=== PATIENT | male | born 1990 | race Caucasian/White ===

== ENCOUNTER 2020-03-16 21:16 | Emergency (ER) | payer OTHER ==
[~2020-03-16] VITALS: Ht 167.6 cm; Wt 99.8 kg
[2020-03-17 00:45] VITALS: BP 149/97
[2020-03-17] MEDS ORDERED: methylPREDNISolone SOD SUCC 125 MG/2 ML VL IM ONE (01:00)
[2020-03-17] MEDS ORDERED: KETOROLAC TROMETH 60MG/2ML VIAL IM ONE (01:00)
== END 2020-03-17 01:51 | disposition home or self-care (01) ==
LOC: ER 21:16
DX: S93.402A Sprain of unspecified ligament of left ankle, initial encounter (principal); X58.XXXA Exposure to other specified factors, initial encounter; Y93.9 Activity, unspecified; Y92.89 Other specified places as the place of occurrence of the external cause; Y99.0 Civilian activity done for income or pay
CPT/HCPCS: 73610; 96372; 99284; J1885; J2930

== ENCOUNTER 2020-12-24 23:34 | Inpatient (IN) | payer OTHER ==
[~2020-12-24] VITALS: Ht 167.6 cm; Wt 106.9 kg
[2020-12-25] VITALS (24 sets, daily range): BP systolic 111–147; BP diastolic 67–95
[2020-12-25 00:02] LABS: Hematocrit 42.6 % (41.0-53.0); Red Cell Distribution Width 12.9 % (11.8-14.3)
[2020-12-25 00:04] LABS: Hemoglobin 15.1 g/dL (13.5-17.5); Mean Corpuscular Hemoglobin 34.2 pg (28.0-32.0); Mean Corpuscular Hgb Conc. 35.5 g/dL (32.0-36.0); Mean Corpuscular Volume 96.1 fL (80.0-100.0); Platelet Count (auto) 394 10^3/uL (140-450); Red Blood Cells 4.43 10^6/uL (4.5-5.90); White Blood Cell 15.6 10^3/uL (4.4-10.8)
[2020-12-25 00:14] LABS: Basophils % (manual) 0 (0.0-2.0); Eosinophils % (manual) 0 (0-7); Promyelocytes % 0; Reactive Lymphocytes 0
[2020-12-25 00:21] LABS: Albumin 2.7 g/dL (3.4-5.0); BUN/Creatinine Ratio 11.2; Calcium 8.1 mg/dL (8.5-10.1); Magnesium 2.9 mg/dL (1.6-2.6); Potassium 3.8 mmol/L (3.5-5.1)
[2020-12-25 00:26] LABS: INR 1.12 (0.9-1.15); Partial Thromboplastin Time 22.2 sec (23.0-31.2)
[2020-12-25 00:27] LABS: Total Protein 7.9 g/dL (6.4-8.2)
[2020-12-25 00:30] LABS: Lactic Acid w/Reflex 2.9 mmol/L (0.4-2.0)
[2020-12-25 00:50] LABS: Band Neutrophils % (manual) 9; Blast Cells 1; Lymphocytes % (manual) 15 (10.0-50.0); Metamyelocytes % 1; Monocytes % (manual) 8 (0-12); Myelocytes % 1
[2020-12-25] MEDS ORDERED: ONDANSETRON HCL 4 MG/2 ML VIAL IV ONE (01:15)
[2020-12-25] MEDS ORDERED: MORPHINE SULFATE 4 MG/ML SYR/VIAL IV ONE (01:15)
[2020-12-25] MEDS ORDERED: ALBUTEROL SULF 2.5 MG/0.5ML(0.5%) NEB SOLN NEB ONE (01:30)
[2020-12-25] MEDS ORDERED: IPRATROPIUM BROM 0.5 MG/2.5ML INH SOL NEB ONE (01:30)
[2020-12-25] MEDS ORDERED: IOHEXOL 350 MG/ML 100ML IJ ONE (03:29)
[2020-12-25] MEDS ORDERED: PIPERACILLIN-TAZOB 3.375GM 100 ML IV ONE (05:30)
[2020-12-25] MEDS ORDERED: VANCOMYCIN 1GM/250ML 250 ML IV ONE (05:30)
[2020-12-25 06:21] LABS: Urine Bacteria FEW /hpf (None Seen); Urine Blood TRACE /uL (Negative); Urine Specific Gravity 1.011 (1.001-1.035); Urine WBC 9 /hpf (0 - 3)
[2020-12-25] MEDS ORDERED: MORPHINE SULFATE 4 MG/ML SYR/VIAL IV PRN (08:00)
[2020-12-25] MEDS ORDERED: IPRATROPIUM BROM 0.5 MG/2.5ML INH SOL NEB PRN (08:00)
[2020-12-25] MEDS ORDERED: VANCOMYCIN PER PHARMACY 0 MG IV SCH (08:00)
[2020-12-25] MEDS ORDERED: DEXTROSE (50%) 50ML SYRG IV PRN (08:00)
[2020-12-25] MEDS ORDERED: ONDANSETRON HCL 4 MG/2 ML VIAL IV PRN (08:00)
[2020-12-25] MEDS ORDERED: HYDROcodone-ACET 5/325MG TAB PO PRN (08:00)
[2020-12-25] MEDS ORDERED: ACETAMINOPHEN 325 MG TAB PO PRN (08:00)
[2020-12-25] MEDS ORDERED: NITROGLYCERIN 0.4 MG SL TAB SL PRN (08:00)
[2020-12-25] MEDS ORDERED: MORPHINE SULF INJ 2 MG/ML SYRINGE 1ML IV PRN (08:00)
[2020-12-25] MEDS ORDERED: ALBUTEROL SULF 2.5 MG/0.5ML(0.5%) NEB SOLN NEB PRN (08:00)
[2020-12-25 08:36] LABS: Basophils # (auto) 0 10 ^3/uL (0-0.2); Basophils % (auto) 0.3 % (0.0-2.0); Eosinophils # (auto) 0.1 10 ^3/uL (0-0.8); Eosinophils % (auto) 0.5 % (0.0-7.0); Hematocrit 42.9 % (41.0-53.0); Hemoglobin 14.8 g/dL (13.5-17.5); Lymphocytes # (auto) 1.5 10 ^3/uL (0.4-5.4); Lymphocytes % (auto) 9.7 % (10.0-50.0); Mean Corpuscular Hemoglobin 33.3 pg (28.0-32.0); Mean Corpuscular Hgb Conc. 34.5 g/dL (32.0-36.0); Mean Corpuscular Volume 96.7 fL (80.0-100.0); Monocytes # (auto) 0.9 10 ^3/uL (0-1.3); Monocytes % (auto) 6.2 % (0.0-12.0); Neutrophils # (auto) 12.5 10 ^3/uL (1.6-8.6); Neutrophils % (auto) 83.3 % (37.0-80.0); Nucleated Red Blood Cells % 0.3 %; Platelet Count (auto) 316 10^3/uL (140-450); Red Blood Cells 4.43 10^6/uL (4.5-5.90); Red Cell Distribution Width 12.8 % (11.8-14.3)
[2020-12-25 08:44] LABS: Albumin 2.4 g/dL (3.4-5.0); BUN/Creatinine Ratio 11.1; Calcium 7.8 mg/dL (8.5-10.1); Magnesium 2.7 mg/dL (1.6-2.6); Potassium 3.7 mmol/L (3.5-5.1)
[2020-12-25 08:47] LABS: Bilirubin, Total 0.9 mg/dL (0.2-1.0); Total Protein 7.1 g/dL (6.4-8.2)
[2020-12-25] MEDS: SODIUM CHLORIDE 0.9% 1,000 ML IV SCH (08:51)
[2020-12-25] MEDS ORDERED: ENOXAPARIN SOD 40 MG/0.4 ML SYRINGE SC SCH (10:00)
[2020-12-25] MEDS ORDERED: AZITHROMYCIN 500MG/ 250ML 250 ML IV SCH (10:00)
[2020-12-25] MEDS: FAMOTIDINE (10MG/ML) 2ML VL IV SCH ×2 (10:26→20:14)
[2020-12-25] MEDS ORDERED: REMDESIVIR PER PHARMACY 0 ML IV SCH (11:30)
[2020-12-25] MEDS ORDERED: ACETAMINOPHEN 500 MG TAB PO PRN (11:30)
[2020-12-25] MEDS: ACCU-CHEK COMFORT CURVE STRIP VI SCH ×3 (11:30→22:00)
[2020-12-25] MEDS ORDERED: ALBUTEROL SULF HFA 90MCG INH 200DOSE IN PRN (11:30)
[2020-12-25] MEDS ORDERED: IVERMECTIN 3 MG TAB PO ONE (11:44)
[2020-12-25] MEDS ORDERED: LORazepam 2MG/ML-1ML VIAL IV PRN (11:45)
[2020-12-25] MEDS ORDERED: ENOXAPARIN SOD 60 MG/0.6 ML SYRINGE SC ONE (12:00)
[2020-12-25] MEDS: InsuLIN REG 1unit/0.01ml Soln (100units/ml) SC SCH ×3 (12:33→20:29)
[2020-12-25] MEDS ORDERED: levoFLOXacin 750MG 150 ML IV ONE (13:00)
[2020-12-25] MEDS ORDERED: methylPREDNISolone SOD SUCC 500 MG in SODIUM CHL 0.9% 100 ML IV ONE (13:00)
[2020-12-25] MEDS ORDERED: FUROSEMIDE 40 MG/4 ML VIAL IV ONE (13:15)
[2020-12-25] MEDS ORDERED: VANCOMYCIN 1GM/250ML 250 ML IV SCH (14:00)
[2020-12-25] MEDS ORDERED: REMDESIVIR 200 MG in NS 210ml LOADING DOSE ADULT IV ONE (15:00)
[2020-12-25] MEDS: ALBUTEROL SULF HFA 90MCG INH 200DOSE IN PRN (18:51)
[2020-12-25] MEDS: IPRATROPIUM BROMIDE HFA AER IN SCH ×2 (18:51→22:50)
[2020-12-25] MEDS: BUDESONIDE (INHALATION) 180 MCG IH IN SCH (18:51)
[2020-12-25] MEDS: ENOXAPARIN SOD 100 MG/1 ML SYRINGE SC SCH (20:14)
[2020-12-26] VITALS (14 sets, daily range): BP systolic 116–144; BP diastolic 54–115
[2020-12-26] MEDS: ACCU-CHEK COMFORT CURVE STRIP VI SCH ×4 (04:06→21:41)
[2020-12-26] MEDS: InsuLIN REG 1unit/0.01ml Soln (100units/ml) SC SCH ×4 (05:26→21:57)
[2020-12-26 05:35] LABS: Basophils % (auto) 0.4 % (0.0-2.0); Eosinophils # (auto) 0 10 ^3/uL (0-0.8); Eosinophils % (auto) 0.1 % (0.0-7.0); Hemoglobin 14.6 g/dL (13.5-17.5); Monocytes # (auto) 0.5 10 ^3/uL (0-1.3)
[2020-12-26 05:37] LABS: Basophils # (auto) 0.1 10 ^3/uL (0-0.2); Hematocrit 41.2 % (41.0-53.0); Lymphocytes % (auto) 8.1 % (10.0-50.0); Mean Corpuscular Hemoglobin 34.5 pg (28.0-32.0); Mean Corpuscular Hgb Conc. 35.3 g/dL (32.0-36.0); Mean Corpuscular Volume 97.8 fL (80.0-100.0); Monocytes % (auto) 4.5 % (0.0-12.0); Neutrophils # (auto) 10.4 10 ^3/uL (1.6-8.6); Neutrophils % (auto) 86.9 % (37.0-80.0); Nucleated Red Blood Cells % 0.3 %; Platelet Count (auto) 288 10^3/uL (140-450); Red Blood Cells 4.22 10^6/uL (4.5-5.90)
[2020-12-26 05:44] LABS: Potassium 3.9 mmol/L (3.5-5.1)
[2020-12-26 05:51] LABS: Albumin 2.5 g/dL (3.4-5.0); BUN/Creatinine Ratio 12.6; Bilirubin, Total 0.9 mg/dL (0.2-1.0); Calcium 8.4 mg/dL (8.5-10.1); Total Protein 7.6 g/dL (6.4-8.2)
[2020-12-26] MEDS: BUDESONIDE (INHALATION) 180 MCG IH IN SCH ×2 (06:11→18:28)
[2020-12-26] MEDS: IPRATROPIUM BROMIDE HFA AER IN SCH ×4 (06:11→22:35)
[2020-12-26] MEDS: ALBUTEROL SULF HFA 90MCG INH 200DOSE IN PRN ×4 (06:11→22:35)
[2020-12-26] MEDS: SODIUM CHLORIDE 0.9% 1,000 ML IV SCH (06:17)
[2020-12-26] MEDS: FUROSEMIDE 40 MG/4 ML VIAL IV SCH (07:59)
[2020-12-26] MEDS: DexAMETHasone SOD PHOS 10MG/1ML VIAL INJ IV SCH (07:59)
[2020-12-26] MEDS: ZINC SULFATE 220mg CAP or TAB PO SCH (08:00)
[2020-12-26] MEDS: levoFLOXacin 750MG 150 ML IV SCH (08:00)
[2020-12-26] MEDS: ASCORBIC ACID 1,000 MG TAB PO SCH (08:00)
[2020-12-26] MEDS: FAMOTIDINE (10MG/ML) 2ML VL IV SCH ×2 (08:00→21:40)
[2020-12-26] MEDS: CHOLECALCIFEROL (VITD3) 2,000 UNIT CAP/TAB PO SCH (08:00)
[2020-12-26] MEDS: ENOXAPARIN SOD 100 MG/1 ML SYRINGE SC SCH ×2 (08:01→21:41)
[2020-12-26] MEDS: REMDESIVIR 100mg 100 MG in SODIUM CHL 0.9% 230 ML IV SCH (15:21)
[2020-12-26] MEDS ORDERED: methylPREDNISolone SOD SUCC 40 MG/ML VL IV ONE (16:30)
[2020-12-26] MEDS ORDERED: diphenhdrAMINE HCL 50 MG/1 ML VL IV ONE (16:30)
[2020-12-26] MEDS ORDERED: ACETAMINOPHEN 650 mg PER 20.3 mL UD PO ONE (16:30)
[2020-12-26] MEDS ORDERED: TOCILIZUMAB 400 MG in SODIUM CHL 0.9% 80 ML IV ONE (17:00)
[2020-12-27] VITALS (14 sets, daily range): BP systolic 91–118; BP diastolic 34–118
[2020-12-27] MEDS: InsuLIN REG 1unit/0.01ml Soln (100units/ml) SC SCH ×4 (05:27→20:59)
[2020-12-27] MEDS: ALBUTEROL SULF HFA 90MCG INH 200DOSE IN PRN ×2 (05:48→18:09)
[2020-12-27] MEDS: IPRATROPIUM BROMIDE HFA AER IN SCH ×3 (05:48→22:11)
[2020-12-27] MEDS: BUDESONIDE (INHALATION) 180 MCG IH IN SCH ×2 (05:49→18:10)
[2020-12-27 05:56] LABS: Basophils # (auto) 0 10 ^3/uL (0-0.2); Basophils % (auto) 0.1 % (0.0-2.0); Eosinophils # (auto) 0 10 ^3/uL (0-0.8); Hematocrit 40.3 % (41.0-53.0); Lymphocytes # (auto) 0.9 10 ^3/uL (0.4-5.4); Lymphocytes % (auto) 5.8 % (10.0-50.0); Mean Corpuscular Hgb Conc. 34.6 g/dL (32.0-36.0); Mean Corpuscular Volume 98.3 fL (80.0-100.0); Monocytes # (auto) 1.1 10 ^3/uL (0-1.3); Monocytes % (auto) 6.7 % (0.0-12.0); Neutrophils # (auto) 13.8 10 ^3/uL (1.6-8.6); Neutrophils % (auto) 87.4 % (37.0-80.0); Nucleated Red Blood Cells % 0.2 %; Platelet Count (auto) 314 10^3/uL (140-450); White Blood Cell 15.8 10^3/uL (4.4-10.8)
[2020-12-27 06:17] LABS: BUN/Creatinine Ratio 19.4; Calcium 8.4 mg/dL (8.5-10.1); Potassium 3.5 mmol/L (3.5-5.1)
[2020-12-27] MEDS: ACCU-CHEK COMFORT CURVE STRIP VI SCH ×4 (07:00→21:05)
[2020-12-27] MEDS: levoFLOXacin 750MG 150 ML IV SCH (09:37)
[2020-12-27] MEDS: FUROSEMIDE 40 MG/4 ML VIAL IV SCH (09:38)
[2020-12-27] MEDS: FAMOTIDINE (10MG/ML) 2ML VL IV SCH ×2 (09:38→21:04)
[2020-12-27] MEDS: DexAMETHasone SOD PHOS 10MG/1ML VIAL INJ IV SCH (09:39)
[2020-12-27] MEDS: ZINC SULFATE 220mg CAP or TAB PO SCH (09:39)
[2020-12-27] MEDS: ENOXAPARIN SOD 100 MG/1 ML SYRINGE SC SCH ×2 (09:40→21:05)
[2020-12-27] MEDS: CHOLECALCIFEROL (VITD3) 2,000 UNIT CAP/TAB PO SCH (09:40)
[2020-12-27] MEDS: ASCORBIC ACID 1,000 MG TAB PO SCH (09:40)
[2020-12-27] MEDS ORDERED: diphenhdrAMINE HCL 50 MG/1 ML VL IV ONE (10:00)
[2020-12-27] MEDS ORDERED: ACETAMINOPHEN 650 mg PER 20.3 mL UD PO ONE (10:00)
[2020-12-27] MEDS ORDERED: TOCILIZUMAB 400 MG in SODIUM CHL 0.9% 80 ML IV ONE (10:30)
[2020-12-27 11:29] LABS: INR 1.28 (0.9-1.15); Partial Thromboplastin Time 28.2 sec (23.0-31.2)
[2020-12-27] MEDS ORDERED: LIDOCAINE 1% (LOCAL ANESTH.) PF 5ml SDV ID ONE (15:00)
[2020-12-27] MEDS: REMDESIVIR 100mg 100 MG in SODIUM CHL 0.9% 230 ML IV SCH (15:47)
[2020-12-27] MEDS: SODIUM CHLOR 0.9% PF (SALINE LOCK) 10ML VIAL/SYR IV SCH (21:04)
[2020-12-28] VITALS (16 sets, daily range): BP systolic 101–147; BP diastolic 56–93
[2020-12-28] MEDS: BUDESONIDE (INHALATION) 180 MCG IH IN SCH ×2 (07:07→19:48)
[2020-12-28] MEDS: ALBUTEROL SULF HFA 90MCG INH 200DOSE IN PRN ×3 (07:07→22:42)
[2020-12-28] MEDS: IPRATROPIUM BROMIDE HFA AER IN SCH ×4 (07:07→22:40)
[2020-12-28 07:12] LABS: Basophils # (auto) 0.1 10 ^3/uL (0-0.2); Basophils % (auto) 1.3 % (0.0-2.0); Eosinophils # (auto) 0.1 10 ^3/uL (0-0.8); Eosinophils % (auto) 0.5 % (0.0-7.0); Hematocrit 41.6 % (41.0-53.0); Hemoglobin 14.2 g/dL (13.5-17.5); Lymphocytes # (auto) 0.9 10 ^3/uL (0.4-5.4); Lymphocytes % (auto) 8.1 % (10.0-50.0); Mean Corpuscular Hemoglobin 33.2 pg (28.0-32.0); Mean Corpuscular Hgb Conc. 34.1 g/dL (32.0-36.0); Mean Corpuscular Volume 97.5 fL (80.0-100.0); Monocytes # (auto) 0.6 10 ^3/uL (0-1.3); Monocytes % (auto) 5.3 % (0.0-12.0); Neutrophils # (auto) 9.4 10 ^3/uL (1.6-8.6); Neutrophils % (auto) 84.8 % (37.0-80.0); Nucleated Red Blood Cells % 0.1 %; Platelet Count (auto) 302 10^3/uL (140-450); Red Blood Cells 4.27 10^6/uL (4.5-5.90); Red Cell Distribution Width 12.8 % (11.8-14.3); White Blood Cell 11.1 10^3/uL (4.4-10.8)
[2020-12-28] MEDS: InsuLIN REG 1unit/0.01ml Soln (100units/ml) SC SCH ×4 (07:19→21:40)
[2020-12-28] MEDS: ACCU-CHEK COMFORT CURVE STRIP VI SCH ×4 (07:19→21:40)
[2020-12-28 07:23] LABS: Potassium 3.4 mmol/L (3.5-5.1)
[2020-12-28 07:35] LABS: BUN/Creatinine Ratio 21.8; CRP High Sensitivity 4.63 mg/dL (< 0.3); Calcium 8.2 mg/dL (8.5-10.1)
[2020-12-28] MEDS: FAMOTIDINE (10MG/ML) 2ML VL IV SCH ×2 (10:08→21:38)
[2020-12-28] MEDS: SODIUM CHLOR 0.9% PF (SALINE LOCK) 10ML VIAL/SYR IV SCH ×2 (10:09→21:38)
[2020-12-28] MEDS: levoFLOXacin 750MG 150 ML IV SCH (10:09)
[2020-12-28] MEDS: FUROSEMIDE 40 MG/4 ML VIAL IV SCH (10:09)
[2020-12-28] MEDS: DexAMETHasone SOD PHOS 10MG/1ML VIAL INJ IV SCH (10:09)
[2020-12-28] MEDS: CHOLECALCIFEROL (VITD3) 2,000 UNIT CAP/TAB PO SCH (10:10)
[2020-12-28] MEDS: ASCORBIC ACID 1,000 MG TAB PO SCH (10:10)
[2020-12-28] MEDS: ZINC SULFATE 220mg CAP or TAB PO SCH (10:10)
[2020-12-28] MEDS: ENOXAPARIN SOD 100 MG/1 ML SYRINGE SC SCH ×2 (10:10→21:40)
[2020-12-28] MEDS: REMDESIVIR 100mg 100 MG in SODIUM CHL 0.9% 230 ML IV SCH (15:05)
[2020-12-28] MEDS ORDERED: POTASSIUM EFFERVESENT TAB 25 MEQ GT ONE (21:15)
[2020-12-29] VITALS (17 sets, daily range): BP systolic 100–117; BP diastolic 54–79
[2020-12-29 05:09] LABS: Eosinophils # (auto) 0.1 10 ^3/uL (0-0.8); Hemoglobin 15.2 g/dL (13.5-17.5); Mean Corpuscular Volume 97.2 fL (80.0-100.0); Monocytes # (auto) 0.6 10 ^3/uL (0-1.3); Nucleated Red Blood Cells % 0.1 %
[2020-12-29 05:11] LABS: Basophils # (auto) 0.1 10 ^3/uL (0-0.2); Basophils % (auto) 0.6 % (0.0-2.0); Eosinophils % (auto) 1.4 % (0.0-7.0); Hematocrit 42.8 % (41.0-53.0); Lymphocytes # (auto) 1.2 10 ^3/uL (0.4-5.4); Lymphocytes % (auto) 12.5 % (10.0-50.0); Mean Corpuscular Hemoglobin 34.5 pg (28.0-32.0); Mean Corpuscular Hgb Conc. 35.6 g/dL (32.0-36.0); Monocytes % (auto) 6.4 % (0.0-12.0); Neutrophils # (auto) 7.7 10 ^3/uL (1.6-8.6); Neutrophils % (auto) 79.1 % (37.0-80.0); Platelet Count (auto) 303 10^3/uL (140-450); White Blood Cell 9.8 10^3/uL (4.4-10.8)
[2020-12-29 05:28] LABS: Albumin 2.5 g/dL (3.4-5.0); Calcium 8.2 mg/dL (8.5-10.1)
[2020-12-29 05:37] LABS: Bilirubin, Total 0.5 mg/dL (0.2-1.0); CRP High Sensitivity 2.63 mg/dL (< 0.3); Total Protein 6.5 g/dL (6.4-8.2)
[2020-12-29] MEDS: InsuLIN REG 1unit/0.01ml Soln (100units/ml) SC SCH ×4 (06:14→21:54)
[2020-12-29] MEDS: ACCU-CHEK COMFORT CURVE STRIP VI SCH ×4 (06:15→22:03)
[2020-12-29] MEDS: INSULIN LANTUS (GLARGINE) 1 /0.01ml (100units/ml) SC SCH (06:19)
[2020-12-29] MEDS: BUDESONIDE (INHALATION) 180 MCG IH IN SCH ×2 (06:39→18:31)
[2020-12-29] MEDS: IPRATROPIUM BROMIDE HFA AER IN SCH ×4 (06:39→22:24)
[2020-12-29] MEDS: ALBUTEROL SULF HFA 90MCG INH 200DOSE IN PRN ×2 (06:40→18:31)
[2020-12-29] MEDS: FAMOTIDINE (10MG/ML) 2ML VL IV SCH ×2 (09:58→21:34)
[2020-12-29] MEDS: FUROSEMIDE 40 MG/4 ML VIAL IV SCH (09:58)
[2020-12-29] MEDS: DexAMETHasone SOD PHOS 10MG/1ML VIAL INJ IV SCH (09:58)
[2020-12-29] MEDS: levoFLOXacin 750MG 150 ML IV SCH (09:59)
[2020-12-29] MEDS: SODIUM CHLOR 0.9% PF (SALINE LOCK) 10ML VIAL/SYR IV SCH ×2 (10:00→21:34)
[2020-12-29] MEDS: CHOLECALCIFEROL (VITD3) 2,000 UNIT CAP/TAB PO SCH (10:06)
[2020-12-29] MEDS: ASCORBIC ACID 1,000 MG TAB PO SCH (10:06)
[2020-12-29] MEDS: ZINC SULFATE 220mg CAP or TAB PO SCH (10:06)
[2020-12-29] MEDS: ENOXAPARIN SOD 100 MG/1 ML SYRINGE SC SCH ×2 (10:06→21:34)
[2020-12-29] MEDS: POTASSIUM EFFERVESENT TAB 25 MEQ GT SCH (10:07)
[2020-12-29] MEDS: REMDESIVIR 100mg 100 MG in SODIUM CHL 0.9% 230 ML IV SCH (15:48)
[2020-12-30] VITALS (15 sets, daily range): BP systolic 80–126; BP diastolic 39–83
[2020-12-30] MEDS: ACCU-CHEK COMFORT CURVE STRIP VI SCH ×4 (06:30→20:49)
[2020-12-30] MEDS: InsuLIN REG 1unit/0.01ml Soln (100units/ml) SC SCH ×4 (06:30→21:29)
[2020-12-30] MEDS: BUDESONIDE (INHALATION) 180 MCG IH IN SCH ×2 (07:10→19:39)
[2020-12-30] MEDS: POTASSIUM EFFERVESENT TAB 25 MEQ GT SCH (08:52)
[2020-12-30] MEDS: DexAMETHasone SOD PHOS 10MG/1ML VIAL INJ IV SCH (08:52)
[2020-12-30] MEDS: FUROSEMIDE 40 MG/4 ML VIAL IV SCH (08:53)
[2020-12-30] MEDS: levoFLOXacin 750MG 150 ML IV SCH (08:53)
[2020-12-30] MEDS: SODIUM CHLOR 0.9% PF (SALINE LOCK) 10ML VIAL/SYR IV SCH ×2 (08:54→20:49)
[2020-12-30] MEDS: ZINC SULFATE 220mg CAP or TAB PO SCH (08:54)
[2020-12-30] MEDS: FAMOTIDINE (10MG/ML) 2ML VL IV SCH ×2 (08:54→20:49)
[2020-12-30] MEDS: ASCORBIC ACID 1,000 MG TAB PO SCH (08:55)
[2020-12-30] MEDS: ENOXAPARIN SOD 100 MG/1 ML SYRINGE SC SCH ×2 (08:55→20:49)
[2020-12-30] MEDS: CHOLECALCIFEROL (VITD3) 2,000 UNIT CAP/TAB PO SCH (08:55)
[2020-12-30] MEDS: INSULIN LANTUS (GLARGINE) 1 /0.01ml (100units/ml) SC SCH (09:40)
[2020-12-30] MEDS: IPRATROPIUM BROMIDE HFA AER IN SCH ×3 (16:00→22:26)
[2020-12-30] MEDS: ALBUTEROL SULF HFA 90MCG INH 200DOSE IN PRN (16:19)
[2020-12-31] VITALS (18 sets, daily range): BP systolic 92–119; BP diastolic 50–70
[2020-12-31 05:27] LABS: Basophils # (auto) 0.1 10 ^3/uL (0-0.2); Basophils % (auto) 0.5 % (0.0-2.0); Eosinophils # (auto) 0.1 10 ^3/uL (0-0.8); Hematocrit 47.7 % (41.0-53.0); Hemoglobin 16.6 g/dL (13.5-17.5); Lymphocytes # (auto) 1.5 10 ^3/uL (0.4-5.4); Lymphocytes % (auto) 9.6 % (10.0-50.0); Mean Corpuscular Hgb Conc. 34.8 g/dL (32.0-36.0); Mean Corpuscular Volume 97.8 fL (80.0-100.0); Monocytes % (auto) 6.9 % (0.0-12.0); Neutrophils # (auto) 12.5 10 ^3/uL (1.6-8.6); Nucleated Red Blood Cells % 0.2 %; Platelet Count (auto) 364 10^3/uL (140-450); Red Blood Cells 4.88 10^6/uL (4.5-5.90); Red Cell Distribution Width 13.2 % (11.8-14.3); White Blood Cell 15.2 10^3/uL (4.4-10.8)
[2020-12-31 05:50] LABS: Potassium 4.4 mmol/L (3.5-5.1)
[2020-12-31 05:57] LABS: Calcium 8.7 mg/dL (8.5-10.1)
[2020-12-31] MEDS: InsuLIN REG 1unit/0.01ml Soln (100units/ml) SC SCH ×4 (06:09→21:07)
[2020-12-31] MEDS: INSULIN LANTUS (GLARGINE) 1 /0.01ml (100units/ml) SC SCH (06:10)
[2020-12-31] MEDS: ACCU-CHEK COMFORT CURVE STRIP VI SCH ×4 (06:10→21:06)
[2020-12-31] MEDS: ALBUTEROL SULF HFA 90MCG INH 200DOSE IN PRN ×3 (06:59→22:41)
[2020-12-31] MEDS: IPRATROPIUM BROMIDE HFA AER IN SCH ×4 (07:00→22:41)
[2020-12-31] MEDS: BUDESONIDE (INHALATION) 180 MCG IH IN SCH ×2 (10:02→22:41)
[2020-12-31] MEDS: FUROSEMIDE 40 MG/4 ML VIAL IV SCH (10:13)
[2020-12-31] MEDS: POTASSIUM EFFERVESENT TAB 25 MEQ GT SCH (10:13)
[2020-12-31] MEDS: DexAMETHasone SOD PHOS 10MG/1ML VIAL INJ IV SCH (10:13)
[2020-12-31] MEDS: SODIUM CHLOR 0.9% PF (SALINE LOCK) 10ML VIAL/SYR IV SCH ×2 (10:14→21:06)
[2020-12-31] MEDS: ZINC SULFATE 220mg CAP or TAB PO SCH (10:14)
[2020-12-31] MEDS: levoFLOXacin 750MG 150 ML IV SCH (10:14)
[2020-12-31] MEDS: FAMOTIDINE (10MG/ML) 2ML VL IV SCH ×2 (10:14→21:05)
[2020-12-31] MEDS: ASCORBIC ACID 1,000 MG TAB PO SCH (10:15)
[2020-12-31] MEDS: ENOXAPARIN SOD 100 MG/1 ML SYRINGE SC SCH ×2 (10:15→21:06)
[2020-12-31] MEDS: CHOLECALCIFEROL (VITD3) 2,000 UNIT CAP/TAB PO SCH (10:15)
[2020-12-31] MEDS ORDERED: SALINE 0.65 % NASAL SPRAY 45ML BOTTLE EACHNOSTRI ONE (12:30)
[2020-12-31] MEDS: SALINE 0.65 % NASAL SPRAY 45ML BOTTLE EACHNOSTRI SCH ×3 (14:30→21:05)
[2020-12-31] MEDS ORDERED: PROMETHAZINE W/CODEINE 5 ML ORAL SYRUP PO PRN (15:45)
[2021-01-01] VITALS (14 sets, daily range): BP systolic 98–129; BP diastolic 52–79
[2021-01-01 05:25] LABS: Basophils # (auto) 0.1 10 ^3/uL (0-0.2); Eosinophils # (auto) 0.2 10 ^3/uL (0-0.8); Hemoglobin 16.2 g/dL (13.5-17.5); Nucleated Red Blood Cells % 0.1 %; Red Cell Distribution Width 13.4 % (11.8-14.3)
[2021-01-01 05:32] LABS: Basophils % (auto) 0.8 % (0.0-2.0); Hematocrit 45.8 % (41.0-53.0); Lymphocytes # (auto) 1.6 10 ^3/uL (0.4-5.4); Lymphocytes % (auto) 15.4 % (10.0-50.0); Mean Corpuscular Hemoglobin 34.8 pg (28.0-32.0); Mean Corpuscular Hgb Conc. 35.3 g/dL (32.0-36.0); Mean Corpuscular Volume 98.5 fL (80.0-100.0); Monocytes # (auto) 0.9 10 ^3/uL (0-1.3); Monocytes % (auto) 8.7 % (0.0-12.0); Neutrophils # (auto) 7.4 10 ^3/uL (1.6-8.6); Neutrophils % (auto) 73.1 % (37.0-80.0); Platelet Count (auto) 312 10^3/uL (140-450); Red Blood Cells 4.66 10^6/uL (4.5-5.90); White Blood Cell 10.2 10^3/uL (4.4-10.8)
[2021-01-01] MEDS: SALINE 0.65 % NASAL SPRAY 45ML BOTTLE EACHNOSTRI SCH ×4 (06:01→21:53)
[2021-01-01] MEDS: INSULIN LANTUS (GLARGINE) 1 /0.01ml (100units/ml) SC SCH (06:02)
[2021-01-01] MEDS: ACCU-CHEK COMFORT CURVE STRIP VI SCH ×4 (06:02→21:54)
[2021-01-01] MEDS: InsuLIN REG 1unit/0.01ml Soln (100units/ml) SC SCH ×4 (06:03→21:57)
[2021-01-01] MEDS: IPRATROPIUM BROMIDE HFA AER IN SCH ×4 (06:26→22:30)
[2021-01-01] MEDS: BUDESONIDE (INHALATION) 180 MCG IH IN SCH ×2 (06:27→22:31)
[2021-01-01] MEDS: ALBUTEROL SULF HFA 90MCG INH 200DOSE IN PRN (06:27)
[2021-01-01] MEDS: POTASSIUM EFFERVESENT TAB 25 MEQ GT SCH (08:54)
[2021-01-01] MEDS: ZINC SULFATE 220mg CAP or TAB PO SCH (08:55)
[2021-01-01] MEDS: FAMOTIDINE (10MG/ML) 2ML VL IV SCH ×2 (08:55→21:53)
[2021-01-01] MEDS: DexAMETHasone SOD PHOS 10MG/1ML VIAL INJ IV SCH (08:55)
[2021-01-01] MEDS: SODIUM CHLOR 0.9% PF (SALINE LOCK) 10ML VIAL/SYR IV SCH ×2 (08:55→21:54)
[2021-01-01] MEDS: FUROSEMIDE 40 MG/4 ML VIAL IV SCH (08:55)
[2021-01-01] MEDS: levoFLOXacin 750MG 150 ML IV SCH (08:55)
[2021-01-01] MEDS: CHOLECALCIFEROL (VITD3) 2,000 UNIT CAP/TAB PO SCH (08:56)
[2021-01-01] MEDS: ENOXAPARIN SOD 100 MG/1 ML SYRINGE SC SCH ×2 (08:56→21:54)
[2021-01-01] MEDS: ASCORBIC ACID 1,000 MG TAB PO SCH (08:56)
[2021-01-02] VITALS (11 sets, daily range): BP systolic 90–136; BP diastolic 52–77
[2021-01-02 05:22] LABS: Basophils # (auto) 0.1 10 ^3/uL (0-0.2); Eosinophils # (auto) 0.1 10 ^3/uL (0-0.8); Lymphocytes # (auto) 1.5 10 ^3/uL (0.4-5.4); Neutrophils # (auto) 7.8 10 ^3/uL (1.6-8.6)
[2021-01-02 05:26] LABS: Basophils % (auto) 0.5 % (0.0-2.0); Eosinophils % (auto) 1.1 % (0.0-7.0); Hematocrit 45.7 % (41.0-53.0); Mean Corpuscular Hemoglobin 34.2 pg (28.0-32.0); Mean Corpuscular Volume 97.7 fL (80.0-100.0); Monocytes # (auto) 1.1 10 ^3/uL (0-1.3); Neutrophils % (auto) 74.4 % (37.0-80.0); Nucleated Red Blood Cells % 0.1 %; Platelet Count (auto) 305 10^3/uL (140-450); Red Blood Cells 4.68 10^6/uL (4.5-5.90); Red Cell Distribution Width 13.3 % (11.8-14.3); White Blood Cell 10.5 10^3/uL (4.4-10.8)
[2021-01-02 05:39] LABS: INR 1.09 (0.9-1.15); Partial Thromboplastin Time 32.2 sec (23.0-31.2)
[2021-01-02 05:41] LABS: Calcium 8.6 mg/dL (8.5-10.1); Potassium 3.9 mmol/L (3.5-5.1)
[2021-01-02 05:48] LABS: Albumin 2.9 g/dL (3.4-5.0); BUN/Creatinine Ratio 21.4; Bilirubin, Total 0.7 mg/dL (0.2-1.0); Magnesium 2.2 mg/dL (1.6-2.6); Phosphorus 4.5 mg/dL (2.5-4.90); Total Protein 6.4 g/dL (6.4-8.2)
[2021-01-02] MEDS: SALINE 0.65 % NASAL SPRAY 45ML BOTTLE EACHNOSTRI SCH ×4 (06:30→22:00)
[2021-01-02] MEDS: INSULIN LANTUS (GLARGINE) 1 /0.01ml (100units/ml) SC SCH (06:31)
[2021-01-02] MEDS: InsuLIN REG 1unit/0.01ml Soln (100units/ml) SC SCH ×4 (06:32→22:00)
[2021-01-02] MEDS: ACCU-CHEK COMFORT CURVE STRIP VI SCH ×4 (06:33→22:00)
[2021-01-02] MEDS: ALBUTEROL SULF HFA 90MCG INH 200DOSE IN PRN ×2 (07:10→13:38)
[2021-01-02] MEDS: BUDESONIDE (INHALATION) 180 MCG IH IN SCH (07:10)
[2021-01-02] MEDS: IPRATROPIUM BROMIDE HFA AER IN SCH ×3 (07:10→18:00)
[2021-01-02] MEDS: CHOLECALCIFEROL (VITD3) 2,000 UNIT CAP/TAB PO SCH (10:00)
[2021-01-02] MEDS: levoFLOXacin 750MG 150 ML IV SCH (10:03)
[2021-01-02] MEDS: FAMOTIDINE (10MG/ML) 2ML VL IV SCH ×2 (10:04→22:00)
[2021-01-02] MEDS: DexAMETHasone SOD PHOS 10MG/1ML VIAL INJ IV SCH (10:05)
[2021-01-02] MEDS: ENOXAPARIN SOD 100 MG/1 ML SYRINGE SC SCH ×2 (10:05→22:00)
[2021-01-02] MEDS: ASCORBIC ACID 1,000 MG TAB PO SCH (10:05)
[2021-01-02] MEDS: ZINC SULFATE 220mg CAP or TAB PO SCH (10:05)
[2021-01-02] MEDS: FUROSEMIDE 40 MG/4 ML VIAL IV SCH (10:06)
[2021-01-02] MEDS: SODIUM CHLOR 0.9% PF (SALINE LOCK) 10ML VIAL/SYR IV SCH ×2 (10:06→22:00)
[2021-01-02] MEDS: POTASSIUM EFFERVESENT TAB 25 MEQ GT SCH (10:07)
[2021-01-03] VITALS (8 sets, daily range): BP systolic 86–127; BP diastolic 37–80
[2021-01-03 05:21] LABS: Basophils # (auto) 0.1 10 ^3/uL (0-0.2); Basophils % (auto) 0.6 % (0.0-2.0); Eosinophils # (auto) 0 10 ^3/uL (0-0.8); Eosinophils % (auto) 0.3 % (0.0-7.0); Hematocrit 44.9 % (41.0-53.0); Hemoglobin 15.7 g/dL (13.5-17.5); Lymphocytes # (auto) 1.5 10 ^3/uL (0.4-5.4); Lymphocytes % (auto) 15.2 % (10.0-50.0); Mean Corpuscular Hemoglobin 33.8 pg (28.0-32.0); Mean Corpuscular Hgb Conc. 34.9 g/dL (32.0-36.0); Mean Corpuscular Volume 96.9 fL (80.0-100.0); Monocytes # (auto) 1.1 10 ^3/uL (0-1.3); Neutrophils # (auto) 7.4 10 ^3/uL (1.6-8.6); Neutrophils % (auto) 72.9 % (37.0-80.0); Nucleated Red Blood Cells % 0.1 %; Platelet Count (auto) 285 10^3/uL (140-450); Red Blood Cells 4.64 10^6/uL (4.5-5.90); Red Cell Distribution Width 13.2 % (11.8-14.3); White Blood Cell 10.1 10^3/uL (4.4-10.8)
[2021-01-03 05:38] LABS: Calcium 9.1 mg/dL (8.5-10.1); Magnesium 2.4 mg/dL (1.6-2.6); Potassium 4.2 mmol/L (3.5-5.1)
[2021-01-03 05:40] LABS: INR 1.07 (0.9-1.15); Partial Thromboplastin Time 29.9 sec (23.0-31.2)
[2021-01-03 05:42] LABS: BUN/Creatinine Ratio 24.3; Bilirubin, Total 0.6 mg/dL (0.2-1.0); Phosphorus 4.9 mg/dL (2.5-4.90); Total Protein 6.5 g/dL (6.4-8.2)
[2021-01-03] MEDS: SALINE 0.65 % NASAL SPRAY 45ML BOTTLE EACHNOSTRI SCH ×4 (06:00→21:50)
[2021-01-03] MEDS: InsuLIN REG 1unit/0.01ml Soln (100units/ml) SC SCH ×4 (06:40→22:14)
[2021-01-03] MEDS: INSULIN LANTUS (GLARGINE) 1 /0.01ml (100units/ml) SC SCH ×2 (06:41→22:14)
[2021-01-03] MEDS: ACCU-CHEK COMFORT CURVE STRIP VI SCH ×4 (06:42→22:15)
[2021-01-03] MEDS: levoFLOXacin 750MG 150 ML IV SCH (08:33)
[2021-01-03] MEDS: SODIUM CHLOR 0.9% PF (SALINE LOCK) 10ML VIAL/SYR IV SCH ×2 (08:33→21:50)
[2021-01-03] MEDS: DexAMETHasone SOD PHOS 10MG/1ML VIAL INJ IV SCH (08:33)
[2021-01-03] MEDS: FAMOTIDINE (10MG/ML) 2ML VL IV SCH (08:33)
[2021-01-03] MEDS: ZINC SULFATE 220mg CAP or TAB PO SCH (09:25)
[2021-01-03] MEDS: FUROSEMIDE 40 MG/4 ML VIAL IV SCH (09:25)
[2021-01-03] MEDS: POTASSIUM EFFERVESENT TAB 25 MEQ GT SCH (09:25)
[2021-01-03] MEDS: CHOLECALCIFEROL (VITD3) 2,000 UNIT CAP/TAB PO SCH (09:25)
[2021-01-03] MEDS: ASCORBIC ACID 1,000 MG TAB PO SCH (09:25)
[2021-01-03] MEDS: ENOXAPARIN SOD 100 MG/1 ML SYRINGE SC SCH ×2 (09:26→21:50)
[2021-01-03] MEDS: BUDESONIDE (INHALATION) 180 MCG IH IN SCH ×4 (10:00→22:42)
[2021-01-03] MEDS: IPRATROPIUM BROMIDE HFA AER IN SCH ×2 (19:10→22:34)
[2021-01-03] MEDS: ALBUTEROL SULF HFA 90MCG INH 200DOSE IN PRN (22:34)
[2021-01-04] VITALS: BP 98/49
[2021-01-04 04:00] VITALS: BP 109/68
[2021-01-04 05:57] LABS: Potassium 3.9 mmol/L (3.5-5.1)
[2021-01-04] MEDS: SALINE 0.65 % NASAL SPRAY 45ML BOTTLE EACHNOSTRI SCH ×4 (06:00→22:00)
[2021-01-04 06:01] LABS: BUN/Creatinine Ratio 29.7; Calcium 8.8 mg/dL (8.5-10.1)
[2021-01-04] MEDS: InsuLIN REG 1unit/0.01ml Soln (100units/ml) SC SCH ×4 (06:58→22:00)
[2021-01-04] MEDS: ACCU-CHEK COMFORT CURVE STRIP VI SCH ×4 (07:11→22:00)
[2021-01-04] MEDS: IPRATROPIUM BROMIDE HFA AER IN SCH ×4 (07:13→21:44)
[2021-01-04] MEDS: BUDESONIDE (INHALATION) 180 MCG IH IN SCH ×2 (07:13→18:27)
[2021-01-04 08:00] VITALS: BP 137/84
[2021-01-04] MEDS: FUROSEMIDE 40 MG/4 ML VIAL IV SCH (08:47)
[2021-01-04] MEDS: POTASSIUM EFFERVESENT TAB 25 MEQ GT SCH (08:47)
[2021-01-04] MEDS: SODIUM CHLOR 0.9% PF (SALINE LOCK) 10ML VIAL/SYR IV SCH ×2 (08:47→22:00)
[2021-01-04] MEDS: DexAMETHasone SOD PHOS 10MG/1ML VIAL INJ IV SCH (08:47)
[2021-01-04] MEDS: levoFLOXacin 750MG 150 ML IV SCH (08:47)
[2021-01-04] MEDS: CHOLECALCIFEROL (VITD3) 2,000 UNIT CAP/TAB PO SCH (08:48)
[2021-01-04] MEDS: ZINC SULFATE 220mg CAP or TAB PO SCH (08:48)
[2021-01-04] MEDS: ASCORBIC ACID 1,000 MG TAB PO SCH (08:48)
[2021-01-04] MEDS: FAMOTIDINE 20 MG TAB PO SCH (08:48)
[2021-01-04] MEDS: ENOXAPARIN SOD 100 MG/1 ML SYRINGE SC SCH ×2 (09:44→23:03)
[2021-01-04] MEDS: INSULIN LANTUS (GLARGINE) 1 /0.01ml (100units/ml) SC SCH ×2 (09:44→22:00)
[2021-01-04 12:00] VITALS: BP 117/78
[2021-01-04 16:00] VITALS: BP 126/77
[2021-01-04 20:00] VITALS: BP 140/92
[2021-01-05] VITALS (15 sets, daily range): BP systolic 90–149; BP diastolic 49–94
[2021-01-05] MEDS: SALINE 0.65 % NASAL SPRAY 45ML BOTTLE EACHNOSTRI SCH ×4 (06:06→21:37)
[2021-01-05] MEDS: InsuLIN REG 1unit/0.01ml Soln (100units/ml) SC SCH ×4 (06:39→21:39)
[2021-01-05] MEDS: ACCU-CHEK COMFORT CURVE STRIP VI SCH ×4 (06:41→21:40)
[2021-01-05] MEDS: IPRATROPIUM BROMIDE HFA AER IN SCH ×3 (07:22→19:20)
[2021-01-05] MEDS: ALBUTEROL SULF HFA 90MCG INH 200DOSE IN PRN ×2 (07:23→19:20)
[2021-01-05 08:54] LABS: Calcium 8.9 mg/dL (8.5-10.1); Potassium 3.9 mmol/L (3.5-5.1)
[2021-01-05 08:57] LABS: BUN/Creatinine Ratio 26.2
[2021-01-05] MEDS: BUDESONIDE (INHALATION) 180 MCG IH IN SCH ×2 (10:00→19:20)
[2021-01-05] MEDS: SODIUM CHLOR 0.9% PF (SALINE LOCK) 10ML VIAL/SYR IV SCH ×2 (10:00→21:38)
[2021-01-05] MEDS: ZINC SULFATE 220mg CAP or TAB PO SCH (10:49)
[2021-01-05] MEDS: DexAMETHasone SOD PHOS 10MG/1ML VIAL INJ IV SCH (10:49)
[2021-01-05] MEDS: ASCORBIC ACID 1,000 MG TAB PO SCH (10:51)
[2021-01-05] MEDS: FAMOTIDINE 20 MG TAB PO SCH (10:51)
[2021-01-05] MEDS: CHOLECALCIFEROL (VITD3) 2,000 UNIT CAP/TAB PO SCH (10:51)
[2021-01-05] MEDS: ENOXAPARIN SOD 100 MG/1 ML SYRINGE SC SCH ×2 (10:52→21:40)
[2021-01-05] MEDS: INSULIN LANTUS (GLARGINE) 1 /0.01ml (100units/ml) SC SCH ×2 (10:53→21:39)
[2021-01-05] MEDS: FUROSEMIDE 40 MG/4 ML VIAL IV SCH (10:56)
[2021-01-05] MEDS: POTASSIUM EFFERVESENT TAB 25 MEQ GT SCH (11:38)
[2021-01-06] VITALS (23 sets, daily range): BP systolic 98–140; BP diastolic 56–96
[2021-01-06 05:22] LABS: Basophils # (auto) 0.1 10 ^3/uL (0-0.2); Basophils % (auto) 0.8 % (0.0-2.0); Eosinophils # (auto) 0.1 10 ^3/uL (0-0.8); Eosinophils % (auto) 0.7 % (0.0-7.0); Hemoglobin 15.2 g/dL (13.5-17.5); Lymphocytes # (auto) 2.5 10 ^3/uL (0.4-5.4); Lymphocytes % (auto) 28.4 % (10.0-50.0); Mean Corpuscular Hemoglobin 33.8 pg (28.0-32.0); Mean Corpuscular Hgb Conc. 34.4 g/dL (32.0-36.0); Mean Corpuscular Volume 98.2 fL (80.0-100.0); Monocytes # (auto) 0.8 10 ^3/uL (0-1.3); Monocytes % (auto) 9.5 % (0.0-12.0); Neutrophils # (auto) 5.4 10 ^3/uL (1.6-8.6); Neutrophils % (auto) 60.6 % (37.0-80.0); Nucleated Red Blood Cells % 0.1 %; Platelet Count (auto) 231 10^3/uL (140-450); Red Blood Cells 4.48 10^6/uL (4.5-5.90); Red Cell Distribution Width 13.1 % (11.8-14.3)
[2021-01-06 05:57] LABS: Potassium 4.1 mmol/L (3.5-5.1)
[2021-01-06] MEDS: SALINE 0.65 % NASAL SPRAY 45ML BOTTLE EACHNOSTRI SCH ×4 (05:57→20:09)
[2021-01-06] MEDS: ACCU-CHEK COMFORT CURVE STRIP VI SCH ×4 (05:57→21:31)
[2021-01-06] MEDS: InsuLIN REG 1unit/0.01ml Soln (100units/ml) SC SCH ×4 (05:58→21:46)
[2021-01-06 06:03] LABS: BUN/Creatinine Ratio 22.4; CRP High Sensitivity 0.11 mg/dL (< 0.3); Calcium 8.6 mg/dL (8.5-10.1)
[2021-01-06] MEDS: BUDESONIDE (INHALATION) 180 MCG IH IN SCH ×2 (06:55→18:02)
[2021-01-06] MEDS: ALBUTEROL SULF HFA 90MCG INH 200DOSE IN PRN ×3 (06:55→22:18)
[2021-01-06] MEDS: IPRATROPIUM BROMIDE HFA AER IN SCH ×4 (09:26→22:17)
[2021-01-06] MEDS: ASCORBIC ACID 1,000 MG TAB PO SCH (09:50)
[2021-01-06] MEDS: ENOXAPARIN SOD 100 MG/1 ML SYRINGE SC SCH (09:50)
[2021-01-06] MEDS: FUROSEMIDE 40 MG/4 ML VIAL IV SCH (09:50)
[2021-01-06] MEDS: CHOLECALCIFEROL (VITD3) 2,000 UNIT CAP/TAB PO SCH (09:50)
[2021-01-06] MEDS: POTASSIUM EFFERVESENT TAB 25 MEQ GT SCH (09:50)
[2021-01-06] MEDS: SODIUM CHLOR 0.9% PF (SALINE LOCK) 10ML VIAL/SYR IV SCH ×2 (09:51→20:09)
[2021-01-06] MEDS: ZINC SULFATE 220mg CAP or TAB PO SCH (09:51)
[2021-01-06] MEDS: FAMOTIDINE 20 MG TAB PO SCH (09:51)
[2021-01-06] MEDS: INSULIN LANTUS (GLARGINE) 1 /0.01ml (100units/ml) SC SCH ×2 (10:00→21:44)
[2021-01-06] MEDS: APIXABAN 5 MG TAB PO SCH (20:09)
[2021-01-07] VITALS (11 sets, daily range): BP systolic 95–141; BP diastolic 51–95
[2021-01-07 04:45] LABS: Basophils # (auto) 0.1 10 ^3/uL (0-0.2); Basophils % (auto) 1.5 % (0.0-2.0); Eosinophils # (auto) 0.1 10 ^3/uL (0-0.8); Hematocrit 41.9 % (41.0-53.0); Hemoglobin 14.7 g/dL (13.5-17.5); Lymphocytes # (auto) 2.6 10 ^3/uL (0.4-5.4); Lymphocytes % (auto) 36.3 % (10.0-50.0); Mean Corpuscular Hemoglobin 34.1 pg (28.0-32.0); Mean Corpuscular Volume 97.3 fL (80.0-100.0); Monocytes # (auto) 0.7 10 ^3/uL (0-1.3); Monocytes % (auto) 9.5 % (0.0-12.0); Neutrophils # (auto) 3.6 10 ^3/uL (1.6-8.6); Neutrophils % (auto) 50.7 % (37.0-80.0); Nucleated Red Blood Cells % 0.2 %; Platelet Count (auto) 220 10^3/uL (140-450); Red Blood Cells 4.31 10^6/uL (4.5-5.90); Red Cell Distribution Width 13.4 % (11.8-14.3); White Blood Cell 7.2 10^3/uL (4.4-10.8)
[2021-01-07 05:01] LABS: BUN/Creatinine Ratio 23.4; Calcium 8.6 mg/dL (8.5-10.1)
[2021-01-07] MEDS: ACCU-CHEK COMFORT CURVE STRIP VI SCH ×4 (06:05→22:39)
[2021-01-07] MEDS: SALINE 0.65 % NASAL SPRAY 45ML BOTTLE EACHNOSTRI SCH ×4 (06:05→22:38)
[2021-01-07] MEDS: InsuLIN REG 1unit/0.01ml Soln (100units/ml) SC SCH ×4 (06:09→22:41)
[2021-01-07] MEDS: BUDESONIDE (INHALATION) 180 MCG IH IN SCH ×2 (06:57→18:55)
[2021-01-07] MEDS: ALBUTEROL SULF HFA 90MCG INH 200DOSE IN PRN ×2 (06:57→18:54)
[2021-01-07] MEDS: IPRATROPIUM BROMIDE HFA AER IN SCH ×4 (06:58→22:00)
[2021-01-07] MEDS: APIXABAN 5 MG TAB PO SCH ×2 (09:14→22:39)
[2021-01-07] MEDS: POTASSIUM EFFERVESENT TAB 25 MEQ GT SCH (09:14)
[2021-01-07] MEDS: ZINC SULFATE 220mg CAP or TAB PO SCH (09:14)
[2021-01-07] MEDS: FAMOTIDINE 20 MG TAB PO SCH (09:14)
[2021-01-07] MEDS: CHOLECALCIFEROL (VITD3) 2,000 UNIT CAP/TAB PO SCH (09:14)
[2021-01-07] MEDS: ASCORBIC ACID 1,000 MG TAB PO SCH (09:14)
[2021-01-07] MEDS: INSULIN LANTUS (GLARGINE) 1 /0.01ml (100units/ml) SC SCH ×2 (09:49→22:42)
[2021-01-07] MEDS: FUROSEMIDE 40 MG/4 ML VIAL IV SCH (09:49)
[2021-01-07] MEDS: SODIUM CHLOR 0.9% PF (SALINE LOCK) 10ML VIAL/SYR IV SCH ×2 (09:49→22:38)
[2021-01-08 05:14] VITALS: BP 112/71
[2021-01-08] MEDS: SALINE 0.65 % NASAL SPRAY 45ML BOTTLE EACHNOSTRI SCH ×4 (06:25→21:54)
[2021-01-08] MEDS: ACCU-CHEK COMFORT CURVE STRIP VI SCH ×4 (06:26→21:55)
[2021-01-08] MEDS: InsuLIN REG 1unit/0.01ml Soln (100units/ml) SC SCH ×4 (06:27→21:57)
[2021-01-08 07:08] LABS: Basophils # (auto) 0.1 10 ^3/uL (0-0.2); Basophils % (auto) 1.3 % (0.0-2.0); Eosinophils # (auto) 0.1 10 ^3/uL (0-0.8); Eosinophils % (auto) 2.5 % (0.0-7.0); Hematocrit 42.9 % (41.0-53.0); Hemoglobin 14.9 g/dL (13.5-17.5); Lymphocytes # (auto) 1.7 10 ^3/uL (0.4-5.4); Lymphocytes % (auto) 29.2 % (10.0-50.0); Mean Corpuscular Hemoglobin 33.8 pg (28.0-32.0); Mean Corpuscular Hgb Conc. 34.9 g/dL (32.0-36.0); Monocytes # (auto) 0.5 10 ^3/uL (0-1.3); Monocytes % (auto) 8.9 % (0.0-12.0); Neutrophils # (auto) 3.3 10 ^3/uL (1.6-8.6); Neutrophils % (auto) 58.1 % (37.0-80.0); Nucleated Red Blood Cells % 0.1 %; Platelet Count (auto) 233 10^3/uL (140-450); Red Blood Cells 4.42 10^6/uL (4.5-5.90); Red Cell Distribution Width 12.9 % (11.8-14.3); White Blood Cell 5.7 10^3/uL (4.4-10.8)
[2021-01-08 07:09] LABS: Calcium 8.6 mg/dL (8.5-10.1); Potassium 4.5 mmol/L (3.5-5.1)
[2021-01-08 07:11] LABS: BUN/Creatinine Ratio 18.1
[2021-01-08] MEDS: IPRATROPIUM BROMIDE HFA AER IN SCH ×4 (08:38→22:00)
[2021-01-08] MEDS: BUDESONIDE (INHALATION) 180 MCG IH IN SCH ×2 (08:39→22:00)
[2021-01-08] MEDS: ALBUTEROL SULF HFA 90MCG INH 200DOSE IN PRN (08:39)
[2021-01-08 09:00] VITALS: BP 104/68
[2021-01-08] MEDS: POTASSIUM EFFERVESENT TAB 25 MEQ GT SCH (09:38)
[2021-01-08] MEDS: CHOLECALCIFEROL (VITD3) 2,000 UNIT CAP/TAB PO SCH (09:38)
[2021-01-08] MEDS: APIXABAN 5 MG TAB PO SCH ×2 (09:38→21:55)
[2021-01-08] MEDS: ASCORBIC ACID 1,000 MG TAB PO SCH (09:39)
[2021-01-08] MEDS: FAMOTIDINE 20 MG TAB PO SCH (09:39)
[2021-01-08] MEDS: ZINC SULFATE 220mg CAP or TAB PO SCH (09:39)
[2021-01-08] MEDS: FUROSEMIDE 40 MG/4 ML VIAL IV SCH (09:41)
[2021-01-08] MEDS: SODIUM CHLOR 0.9% PF (SALINE LOCK) 10ML VIAL/SYR IV SCH ×2 (09:41→21:54)
[2021-01-08] MEDS: INSULIN LANTUS (GLARGINE) 1 /0.01ml (100units/ml) SC SCH ×2 (10:00→21:57)
[2021-01-08 13:00] VITALS: BP 119/64
[2021-01-08 17:00] VITALS: BP 139/79
[2021-01-08 22:00] VITALS: BP 108/65
[2021-01-09 00:34] VITALS: BP 108/65
[2021-01-09 05:00] VITALS: BP 132/85
[2021-01-09] MEDS: ACCU-CHEK COMFORT CURVE STRIP VI SCH ×4 (06:02→21:58)
[2021-01-09] MEDS: SALINE 0.65 % NASAL SPRAY 45ML BOTTLE EACHNOSTRI SCH ×4 (06:02→22:03)
[2021-01-09] MEDS: InsuLIN REG 1unit/0.01ml Soln (100units/ml) SC SCH ×4 (06:02→22:02)
[2021-01-09] MEDS: ALBUTEROL SULF HFA 90MCG INH 200DOSE IN PRN ×2 (07:39→22:20)
[2021-01-09] MEDS: BUDESONIDE (INHALATION) 180 MCG IH IN SCH ×2 (07:39→22:20)
[2021-01-09] MEDS: IPRATROPIUM BROMIDE HFA AER IN SCH ×4 (07:41→22:20)
[2021-01-09 08:41] LABS: Basophils # (auto) 0 10 ^3/uL (0-0.2); Basophils % (auto) 0.7 % (0.0-2.0); Eosinophils # (auto) 0.1 10 ^3/uL (0-0.8); Eosinophils % (auto) 2.3 % (0.0-7.0); Hematocrit 41.3 % (41.0-53.0); Hemoglobin 14.2 g/dL (13.5-17.5); Lymphocytes # (auto) 1.2 10 ^3/uL (0.4-5.4); Lymphocytes % (auto) 20.6 % (10.0-50.0); Mean Corpuscular Hemoglobin 33.6 pg (28.0-32.0); Mean Corpuscular Hgb Conc. 34.4 g/dL (32.0-36.0); Mean Corpuscular Volume 97.6 fL (80.0-100.0); Monocytes # (auto) 0.6 10 ^3/uL (0-1.3); Monocytes % (auto) 11.2 % (0.0-12.0); Neutrophils # (auto) 3.7 10 ^3/uL (1.6-8.6); Neutrophils % (auto) 65.2 % (37.0-80.0); Nucleated Red Blood Cells % 0.1 %; Platelet Count (auto) 188 10^3/uL (140-450); Red Blood Cells 4.23 10^6/uL (4.5-5.90); Red Cell Distribution Width 13.1 % (11.8-14.3); White Blood Cell 5.7 10^3/uL (4.4-10.8)
[2021-01-09 08:50] LABS: BUN/Creatinine Ratio 22.7; Calcium 8.5 mg/dL (8.5-10.1); Potassium 4.3 mmol/L (3.5-5.1)
[2021-01-09 09:00] VITALS: BP 143/88
[2021-01-09] MEDS: SODIUM CHLOR 0.9% PF (SALINE LOCK) 10ML VIAL/SYR IV SCH ×2 (09:07→22:03)
[2021-01-09] MEDS: POTASSIUM EFFERVESENT TAB 25 MEQ GT SCH (09:07)
[2021-01-09] MEDS: FUROSEMIDE 40 MG/4 ML VIAL IV SCH (09:07)
[2021-01-09] MEDS: CHOLECALCIFEROL (VITD3) 2,000 UNIT CAP/TAB PO SCH (09:08)
[2021-01-09] MEDS: APIXABAN 5 MG TAB PO SCH ×2 (09:08→22:03)
[2021-01-09] MEDS: FAMOTIDINE 20 MG TAB PO SCH (09:08)
[2021-01-09] MEDS: ZINC SULFATE 220mg CAP or TAB PO SCH (09:08)
[2021-01-09] MEDS: ASCORBIC ACID 1,000 MG TAB PO SCH (09:08)
[2021-01-09] MEDS: INSULIN LANTUS (GLARGINE) 1 /0.01ml (100units/ml) SC SCH ×2 (09:20→22:02)
[2021-01-09 12:41] VITALS: BP 141/88
[2021-01-09 17:11] VITALS: BP 153/88
[2021-01-09 23:04] VITALS: BP 132/88
[2021-01-10 05:13] VITALS: BP 123/76
[2021-01-10] MEDS: SALINE 0.65 % NASAL SPRAY 45ML BOTTLE EACHNOSTRI SCH ×4 (06:14→21:01)
[2021-01-10] MEDS: InsuLIN REG 1unit/0.01ml Soln (100units/ml) SC SCH ×4 (06:14→20:57)
[2021-01-10] MEDS: ACCU-CHEK COMFORT CURVE STRIP VI SCH ×4 (06:14→21:01)
[2021-01-10 07:17] LABS: Eosinophils # (auto) 0.2 10 ^3/uL (0-0.8); Monocytes # (auto) 0.8 10 ^3/uL (0-1.3); White Blood Cell 6.5 10^3/uL (4.4-10.8)
[2021-01-10 07:19] LABS: Basophils # (auto) 0.1 10 ^3/uL (0-0.2); Eosinophils % (auto) 3.3 % (0.0-7.0); Hematocrit 42.4 % (41.0-53.0); Hemoglobin 15.1 g/dL (13.5-17.5); Lymphocytes # (auto) 1.7 10 ^3/uL (0.4-5.4); Lymphocytes % (auto) 25.7 % (10.0-50.0); Mean Corpuscular Hemoglobin 34.8 pg (28.0-32.0); Mean Corpuscular Hgb Conc. 35.7 g/dL (32.0-36.0); Mean Corpuscular Volume 97.5 fL (80.0-100.0); Monocytes % (auto) 11.9 % (0.0-12.0); Neutrophils # (auto) 3.8 10 ^3/uL (1.6-8.6); Neutrophils % (auto) 58.1 % (37.0-80.0); Nucleated Red Blood Cells % 0.2 %; Platelet Count (auto) 187 10^3/uL (140-450); Red Blood Cells 4.35 10^6/uL (4.5-5.90); Red Cell Distribution Width 13.2 % (11.8-14.3)
[2021-01-10 07:34] LABS: Calcium 9.2 mg/dL (8.5-10.1); Potassium 4.1 mmol/L (3.5-5.1)
[2021-01-10 07:36] LABS: BUN/Creatinine Ratio 21.3
[2021-01-10 09:00] VITALS: BP 126/92
[2021-01-10] MEDS: POTASSIUM EFFERVESENT TAB 25 MEQ GT SCH (10:29)
[2021-01-10] MEDS: ZINC SULFATE 220mg CAP or TAB PO SCH (10:30)
[2021-01-10] MEDS: ASCORBIC ACID 1,000 MG TAB PO SCH (10:30)
[2021-01-10] MEDS: FAMOTIDINE 20 MG TAB PO SCH (10:30)
[2021-01-10] MEDS: SODIUM CHLOR 0.9% PF (SALINE LOCK) 10ML VIAL/SYR IV SCH ×2 (10:30→21:01)
[2021-01-10] MEDS: APIXABAN 5 MG TAB PO SCH ×2 (10:30→21:01)
[2021-01-10] MEDS: FUROSEMIDE 40 MG/4 ML VIAL IV SCH (10:30)
[2021-01-10] MEDS: CHOLECALCIFEROL (VITD3) 2,000 UNIT CAP/TAB PO SCH (10:31)
[2021-01-10] MEDS: INSULIN LANTUS (GLARGINE) 1 /0.01ml (100units/ml) SC SCH ×2 (10:31→21:00)
[2021-01-10] MEDS ORDERED: METF-370 PO (11:17)
[2021-01-10] MEDS ORDERED: APIX5TAB PO (11:17)
[2021-01-10 13:00] VITALS: BP 145/87
[2021-01-10] MEDS: IPRATROPIUM BROMIDE HFA AER IN SCH ×3 (14:33→22:40)
[2021-01-10 17:20] VITALS: BP 142/99
[2021-01-10] MEDS: BUDESONIDE (INHALATION) 180 MCG IH IN SCH (22:40)
[2021-01-11 05:49] VITALS: BP 117/69
[2021-01-11] MEDS: ACCU-CHEK COMFORT CURVE STRIP VI SCH ×3 (05:52→17:02)
[2021-01-11] MEDS: InsuLIN REG 1unit/0.01ml Soln (100units/ml) SC SCH ×3 (05:53→17:05)
[2021-01-11] MEDS: SALINE 0.65 % NASAL SPRAY 45ML BOTTLE EACHNOSTRI SCH ×3 (06:13→17:03)
[2021-01-11] MEDS: IPRATROPIUM BROMIDE HFA AER IN SCH ×3 (07:09→18:00)
[2021-01-11] MEDS: BUDESONIDE (INHALATION) 180 MCG IH IN SCH ×2 (07:09→19:39)
[2021-01-11] MEDS: ALBUTEROL SULF HFA 90MCG INH 200DOSE IN PRN (07:09)
[2021-01-11 09:00] VITALS: BP 128/82
[2021-01-11] MEDS: FUROSEMIDE 40 MG/4 ML VIAL IV SCH (09:43)
[2021-01-11] MEDS: POTASSIUM EFFERVESENT TAB 25 MEQ GT SCH (09:43)
[2021-01-11] MEDS: SODIUM CHLOR 0.9% PF (SALINE LOCK) 10ML VIAL/SYR IV SCH (09:43)
[2021-01-11] MEDS: ASCORBIC ACID 1,000 MG TAB PO SCH (09:44)
[2021-01-11] MEDS: FAMOTIDINE 20 MG TAB PO SCH (09:44)
[2021-01-11] MEDS: APIXABAN 5 MG TAB PO SCH (09:44)
[2021-01-11] MEDS: CHOLECALCIFEROL (VITD3) 2,000 UNIT CAP/TAB PO SCH (09:44)
[2021-01-11] MEDS: ZINC SULFATE 220mg CAP or TAB PO SCH (09:44)
[2021-01-11] MEDS: INSULIN LANTUS (GLARGINE) 1 /0.01ml (100units/ml) SC SCH (09:47)
[2021-01-11 12:19] VITALS: BP 123/53
[2021-01-11 15:54] VITALS: BP 128/87
[2021-01-11 16:47] VITALS: BP_SYST 136
[2021-01-13] MEDS ORDERED: APIXABAN 5 MG TAB PO SCH (22:00)
== END 2021-01-11 20:10 | disposition home or self-care (01) | DRG 177 ==
LOC: ER 23:34 → TELE 12-25 07:54 → DOU IN ICU 12-25 10:45 → TELE-EAST 01-07 20:06
PROVIDERS: ADMIT Nurse Practitioner Family; ATTEND Internal Medicine Pulmonary Disease
PROC: 5A09357 Assistance with Respiratory Ventilation, Less than 24 Consecutive Hours, Continuous Positive Airway Pressure (ICD-10-PCS; principal; 2020-12-25)
PROC: XW033E5 Introduction of Remdesivir Anti-infective into Peripheral Vein, Percutaneous Approach, New Technology Group 5 (ICD-10-PCS; 2020-12-25)
PROC: XW033H5 Introduction of Tocilizumab into Peripheral Vein, Percutaneous Approach, New Technology Group 5 (ICD-10-PCS; 2020-12-26)
DX: U07.1 COVID-19 (principal); I26.99 Other pulmonary embolism without acute cor pulmonale; J12.82 Pneumonia due to coronavirus disease 2019; J96.01 Acute respiratory failure with hypoxia; J98.11 Atelectasis; E11.65 Type 2 diabetes mellitus with hyperglycemia; E86.0 Dehydration; U07.0 Vaping-related disorder; D89.839 Cytokine release syndrome, grade unspecified; E66.9 Obesity, unspecified; Z79.4 Long term (current) use of insulin; Z68.38 Body mass index [BMI] 38.0-38.9, adult
CPT/HCPCS: 36415; 36569; 36600; 71045; 71275; 80048; 80053; 81001; 82306; 82728; 82805; 82962; 83036; 83605; 83615; 83735; 83880; 84100; 84484; 85007; 85025; 85027; 85379; 85610; 85730; 86141; 87040; 87081; 87426; 93005; 94640; 94660; 96365; 96368; 96375; 99291; G0378; J1100; J1815; J1956; J2405; J2543; J3490

== ENCOUNTER 2024-11-14 02:38 | Emergency (ER) | payer OTHER ==
[~2024-11-14] VITALS: Ht 167.6 cm; Wt 99.8 kg
[~2024-11-14 02:38] MED LIST: APIX5TAB PO; METF-370 PO
--- NOTE | 2024-11-14 02:51 | ED.PDOC ---
History of Present Illness(SKN HPI Comments Pt presents to the ER due to puncture wounds to bilateral hands s/p dog bite. Per pt he attempted to pet his dog and pts dog became aggressive and attacked him. Pt noted to have puncture wounds to bilateral hands and fingers. Bleeding controlled, CSM intact. Pt reports dog is not update on shots. Time Seen by MD: 02:45 Primary Care Provider: MELBA History of Present Illness: Nurses Notes, Medications, Allergies Allergies: Coded Allergies: NO KNOWN ALLERGIES (Unverified , 03/16/20) Home Meds Active Scripts Ibuprofen (Ibuprofen) 800 Mg Tab, 800 MG PO Q8HP PRN for 4 Days, #12 TAB Prov:JAHAIRA VEGAS MANAGER OF DEVELOPMENT 11/14/24 Amoxicillin & Pot Clavulanate (AUGMENTIN TABLET) 875 Mg Tb, 875 MG PO BID for 7 Days, #14 TAB Prov:JAHAIRA VEGAS MANAGER OF DEVELOPMENT 11/14/24 Apixaban Base (ELIQUIS) 5 Mg Tab, 5 MG PO BID for 90 Days, #180 TAB Prov:MAGDY MCCLURE MD 01/10/21 Metformin Hydrochloride (Metformin Hcl) 500 Mg Tab, 1 TAB PO BID, #60 TAB 3 Refills Prov:MAGDY MCCLURE MD 01/10/21 Information Source: Patient Past Medical History PAST MEDICAL HISTORY: Denies Surgical History: Denies all surgeries Family History Family History: Unknown Social History Smoker: Non-Smoker Alcohol: Denies ETOH Use Drugs: Denies Drug Use Lives In: Home Constitutional: denies: chills, diaphoresis, fatigue, fever, malaise, sweats, weakness, others EENTM: denies: blurred vision, double vision, ear bleeding, ear discharge, ear drainage, ear pain, ear ringing, eye pain, eye redness, hearing loss, mouth pain, mouth swelling, nasal discharge, nose bleeding, nose congestion, nose pain , photophobia, tearing, throat pain, throat swelling, voice changes, others Respiratory: denies: cough, hemoptysis, orthopnea, SOB at rest, shortness of breath, SOB with excertion, stridor, wheezing, others Cardiovascular: denies: chest pain, dizzy spells, diaphoresis, Dyspnea on exertion, edema, irregular heart beat, left arm pain, lightheadedness, palpitations, PND, syncope, others Gastrointestinal: denies: abdomen distended, abdominal pain, blood streaked bowels, constipated, diarrhea, dysphagia, difficulty swallowing, hematemesis, melena, nausea, poor appetite, poor fluid intake, rectal bleeding, rectal pain, vomiting, others Genitourinary: denies: burning, dysuria, flank pain, frequency, hematuria, incontinence, penile discharge, penile sore, pain, testicle pain, testicle swelling, urgency, others Neurological: denies: dizziness, fainting, headache, left sided numbness, left sided weakness, numbness, paresthesia, pre-existing deficit, right sided numbness, right sided weakness, seizure, speech problems, tingling, tremors, weakness, others Musculoskeletal: denies: back pain, gout, joint pain, joint swelling, muscle pain, muscle stiffness, neck pain, others Integumetry: reports: wounds (DOG BITE TO HAND); denies: bruises, change in color, change in hair/nails, dryness, laceration, lesions, lumps, rash, others Allergic/Immunocompromised: denies: Difficulty Healing, Frequent Infections, Hives, Itching, others Hematologic/Lymphatic: denies: anemia, blood clots, easy bleeding, easy bruising, swollen glands, others Endocrine: denies: excessive hunger, excessive sweating, excessive thirst, excessive urination, flushing, intolerance to cold, intolerance to heat, unexplained weight gain, unexplained weight loss, others Psychiatric: denies: anxiety, bipolar disorder, depression, hopeless, panic disorder, schizophrenia, sleepless, suicidal, others Physical Exam General Appearance: No Apparent Distress, Normal HEENT: Pharynx Normal Neck: Full Range of Motion, Non-Tender Respiratory: Lungs Clear, No Respiratory Distress, Normal Breath Sounds Cardiovascular: No Edema, No Murmur, Normal Peripheral Pulses, Regular Rate/Rhythm Breast Exam: Deferred Gastrointestinal: Non Tender, Soft Genitalia: Deferred Pelvic: Deferred Rectal: Deferred Extremities: No calf tenderness, Normal capillary refill, Normal inspection, Normal range of motion, Non-tender, No pedal edema Musculoskeletal : Apperance: Normal Neurologic: Alert, giver II-XII nml as Tested, No Motor Deficits, Normal Affect, Normal Mood, No Sensory Deficits Cerebellar Function: Normal Reflexes: Normal Skin: Dry, Normal Color, Warm, Wounds (Puncture wounds noted to bilateral proximal 2nd digits we had controlled sting sensory motion intact noted trace edema no noted drainage) Lymphatic: No Adenopathy Was a procedure done? Was a procedure done?: No Differential Diagnosis (INTG) Differential Diagnosis: Cellulitis, Contusion, Fracture, Puncture Wound Differential Diagnosis: Abscess X-Ray, Labs, Meds, VS Vital Signs Date Time Temp Pulse Resp B/P (MAP) Pulse Ox O2 Delivery O2 Flow Rate FiO2 11/14/24 03:45 117 19 95 Room Air 11/14/24 03:45 98.5 117 19 145/96 (112) 95 98.5 11/14/24 02:54 98.9 117 16 140/92 (108) 94 98.9 Current Medications Medications (Trade) Dose Ordered Sig/Lizzy Route Start Time Stop Time Status Last Admin Diphtheria/ Tetanus/Acell Pertussis (Boostrix T-Dap) 0.5 ml ONCE ONCE IM 11/14/24 04:00 11/14/24 04:01 DC 11/14/24 04:29 X-Ray, Labs, Meds, VS Comment Bilateral hand x-ray was reviewed no obvious noted foreign body no noted fractures, osseous lesions or dislocations. Patient given Tdap. Wounds dressed and cleaned. Prophylactic antibiotics script to pharmacy take medications as prescribed side effects discussed. Follow up in 48 hours for wound re- evaluation with PCP urgent care or back here in the ER. ER return precautions given patient indicates understanding agrees with discharge plan of care Time of 1ST Reevaluation: 02:50 Reevaluation 1ST: Unchanged Time of 2ND Reevaluation: 04:26 Reevaluation 2ND: Improved Patient Education/Counseling: Diagnosis, Treatment, Prognosis, Need For Follow Up Family Education/Counseling: No Family Present Departure 1 Departure Time of Disposition: 04:26 Impression: Primary Impression: Dog bite of multiple sites of hand and fingers Qualified Codes: S61.451A - Open bite of right hand, initial encounter; S61.259A - Open bite of unspecified finger without damage to nail, initial encounter; W54.0XXA - Bitten by dog, initial encounter Disposition: 01 HOME / SELF CARE / HOMELESS Condition: Stable e-Prescriptions Ibuprofen (Ibuprofen) 800 Mg Tab 800 MG PO Q8HP PRN for 4 Days, #12 TAB Prov: JAHAIRA VEGAS MANAGER OF DEVELOPMENT 11/14/24 Amoxicillin & Pot Clavulanate (AUGMENTIN TABLET) 875 Mg Tb 875 MG PO BID for 7 Days, #14 TAB Prov: JAHAIRA VEGAS 11/14/24 Discharged With: Self Critical Care Note Critical Care Time?: No Stability Stability form required: JAHAIRA Milner Nov 14, 2024 02:51
[2024-11-14 03:45] VITALS: BP 145/96; PULSE 117; RESP 19; TEMP 98.5; O2SAT 95
[2024-11-14] MEDS: HYDROcodone-ACET 5/325MG TAB PO ONE (03:45)
[2024-11-14] MEDS ORDERED: AUG875T PO (04:01)
[2024-11-14] MEDS ORDERED: IBUP-1456 PO (04:01)
[2024-11-14] MEDS: TETANUS-DIPTH-ACEL PERTUSSIS 0.5ML SYR Tdap IM ONE (04:29)
--- NOTE | 2024-11-14 05:13 | DVH ---
CLINICAL INDICATION: trauma TECHNIQUE: 3 radiographic views of the left hand were obtained. Comparison: None FINDINGS/IMPRESSION: There is no evidence of acute fracture or dislocation. The visualized joint space is well maintained. The alignment is anatomical. There is no radiopaque foreign body.
--- NOTE | 2024-11-14 05:14 | DVH ---
CLINICAL INDICATION: trauma TECHNIQUE: 3 radiographic views of the right hand were obtained. Comparison: None FINDINGS/IMPRESSION: There is no evidence of acute fracture or dislocation. The visualized joint space is well maintained. The alignment is anatomical. There is no radiopaque foreign body.
== END 2024-11-14 04:39 | disposition home or self-care (01) ==
LOC: ER 02:38
DX: S61.451A Open bite of right hand, initial encounter (principal); S61.452A Open bite of left hand, initial encounter; Z79.899 Other long term (current) drug therapy; X58.XXXA Exposure to other specified factors, initial encounter; Y93.89 Activity, other specified; Y92.89 Other specified places as the place of occurrence of the external cause; Y99.8 Other external cause status
CPT/HCPCS: 73130; 90471; 90715